=== PATIENT | male | born 1995 | race Caucasian/White ===

== ENCOUNTER → 2017-06-02 | Outpatient (CLI) | payer BC ==
[2017-06-02 18:51] LABS: BASO # 0.1 K/mm3 (0.0-0.2); BASO % 1.1 % (0.0-1.0); EOS # 0.1 K/mm3 (0.0-0.50); EOS % 1.4 % (0.0-3.0); LARGE UNSTAINED CELL # 0.3 K/mm3 (0.0-0.4); LARGE UNSTAINED CELL % 3.9 % (0.0-4.0); LYMPH # 2.4 K/mm3 (1.5-6.5); LYMPH % 32.8 % (24.0-44.0); MEAN CORPUSCULAR HEMOGLOBIN 33.4 pg (27.0-33.0); MEAN CORPUSCULAR HGB CONC 35.5 g/dl (32.0-36.5); MONO # 0.3 K/mm3 (0.0-0.8); MONO % 3.7 % (0.0-5.0); NEUTROPHILS # 4.2 K/mm3 (1.8-7.7); NEUTROPHILS % 57.1 % (36.0-66.0); PLATELET COUNT, AUTOMATED 350 k/mm3 (150-450); WHITE BLOOD COUNT 7.3 K/mm3 (4.0-10.0)
[2017-06-02 19:29] LABS: ALBUMIN 4.7 GM/DL (3.2-5.2); ALBUMIN/GLOBULIN RATIO 1.34 (1.00-1.93); ALKALINE PHOSPHATASE 83 U/L (45-117); ALT/SGPT 44 U/L (12-78); ANION GAP 10 MEQ/L (8-16); AST/SGOT 25 U/L (15-37); BILIRUBIN,TOTAL 0.4 MG/DL (0.2-1.0); BLOOD UREA NITROGEN 12 MG/DL (7-18); CALCIUM LEVEL 9.5 MG/DL (8.5-10.1); CARBON DIOXIDE LEVEL 27 MEQ/L (21-32); CHLORIDE LEVEL 104 MEQ/L (98-107); CHOLESTEROL LEVEL 239 MG/DL (<200); CREATININE FOR GFR 0.99 MG/DL (0.70-1.30); GLOMERULAR FILTRATION RATE > 60.0 (>60); GLUCOSE, FASTING 60 MG/DL (70-105); POTASSIUM SERUM 4.9 MEQ/L (3.5-5.1); SODIUM LEVEL 141 MEQ/L (136-145); TOTAL PROTEIN 8.2 GM/DL (6.4-8.2); TRIGLYCERIDES LEVEL 132 MG/DL (<150)
[2017-06-02 19:46] LABS: ERYTHROCYTE SEDIMENTATION RATE 2 mm/hr (0-15)
[2017-06-05 00:06] LABS: Lyme Disease IgG/IgM Antibodie <0.91 ISR (0.00-0.90); Lyme Disease IgM Ab Quantitati <0.80 index (0.00-0.79)
== END ==
LOC: M WUC 10:22
PROVIDERS: ATTEND Family Medicine
DX: Z00.01 Encounter for general adult medical examination with abnormal findings (principal); R03.0 Elevated blood-pressure reading, without diagnosis of hypertension; M25.561 Pain in right knee

== ENCOUNTER → 2017-07-01 | Outpatient (CLI) | payer BC | LOC: M OUTALCOH 07:54 | PROVIDERS: ATTEND Psychiatry & Neurology Psychiatry | DX: F10.10 Alcohol abuse, uncomplicated (principal) ==

== ENCOUNTER 2017-07-31 08:00 | Outpatient (RCR) | payer BC | END 2017-08-15 | LOC: M OUTALCOH 08:00 | PROVIDERS: ATTEND Psychiatry & Neurology Psychiatry | DX: F10.10 Alcohol abuse, uncomplicated (principal) ==

== ENCOUNTER → 2021-08-16 | Outpatient (CLI) | payer BC ==
[2021-08-16 10:40] LABS: BASO # 0.1 10^3/uL (0.0-0.2); BASO % 1.2 % (0.0-1.0); EOS # 0.1 10^3/uL (0.0-0.5); EOS % 1.9 % (0.0-3.0); HEMATOCRIT 51.2 % (42.0-52.0); HEMOGLOBIN 17.5 g/dl (13.5-17.5); LYMPH # 2.2 10^3/uL (1.5-5.0); LYMPH % 30.8 % (24.0-44.0); MEAN CORPUSCULAR HEMOGLOBIN 32.5 pg (27.0-33.0); MEAN CORPUSCULAR HGB CONC 34.2 g/dl (32.0-36.5); MEAN CORPUSCULAR VOLUME 95.2 fl (80.0-96.0); MONO # 0.7 10^3/uL (0.0-0.8); MONO % 9.6 % (2.0-8.0); NEUTROPHILS # 4.1 10^3/uL (1.5-8.5); NEUTROPHILS % 56.1 % (36.0-66.0); PLATELET COUNT, AUTOMATED 322 10^3/uL (150-450); RED BLOOD COUNT 5.38 10^6/uL (4.30-6.10); WHITE BLOOD COUNT 7.3 10^3/uL (4.0-10.0)
[2021-08-16 11:18] LABS: ALBUMIN 4.7 GM/DL (3.2-5.2); ALT/SGPT 175 U/L (12-78); BILIRUBIN,TOTAL 0.6 MG/DL (0.2-1.0); BLOOD UREA NITROGEN 11 MG/DL (7-18); CALCIUM LEVEL 9.2 MG/DL (8.5-10.1); CARBON DIOXIDE LEVEL 28 MEQ/L (21-32); CHLORIDE LEVEL 103 MEQ/L (98-107); CHOLESTEROL LEVEL 213 MG/DL (<200); CREATININE FOR GFR 0.81 MG/DL (0.70-1.30); GLOMERULAR FILTRATION RATE > 60.0 (>60); GLUCOSE, FASTING 90 MG/DL (70-100); HDL CHOLESTEROL 78 MG/DL (>40); LDL CHOLESTEROL 113 MG/DL (<100); NON-HDL-C 135 MG/DL; SODIUM LEVEL 140 MEQ/L (136-145); TOTAL PROTEIN 8.1 GM/DL (6.4-8.2); TRIGLYCERIDES LEVEL 111 MG/DL (<150)
== END ==
LOC: M WUC 08:13
PROVIDERS: ATTEND Family Medicine
DX: R03.0 Elevated blood-pressure reading, without diagnosis of hypertension (principal)

== ENCOUNTER → 2024-02-27 | Outpatient (REF) | payer OTHER ==
[2024-02-27 19:23] LABS: BASO # 0.1 10^3/uL (0.0-0.2); BASO % 1.1 % (0.0-1.0); EOS % 0.3 % (0.0-3.0); HEMATOCRIT 46.4 % (42.0-52.0); LYMPH # 1.5 10^3/uL (1.5-5.0); LYMPH % 16.5 % (24.0-44.0); MEAN CORPUSCULAR HEMOGLOBIN 33.7 pg (27.0-33.0); MEAN CORPUSCULAR HGB CONC 34.5 g/dl (32.0-36.5); MEAN CORPUSCULAR VOLUME 97.7 fl (80.0-96.0); MONO # 0.7 10^3/uL (0.0-0.8); MONO % 7.5 % (2.0-8.0); NEUTROPHILS # 6.8 10^3/uL (1.5-8.5); NEUTROPHILS % 74.2 % (36.0-66.0); PLATELET COUNT, AUTOMATED 309 10^3/uL (150-450); RED BLOOD COUNT 4.75 10^6/uL (4.30-6.10); WHITE BLOOD COUNT 9.2 10^3/uL (4.0-10.0)
[2024-02-27 19:25] LABS: ALBUMIN 4.6 G/DL (3.2-5.2); ALKALINE PHOSPHATASE 88 U/L (46-116); ALT/SGPT 155 U/L (7.0-40); AST/SGOT 112 U/L (<34); BILIRUBIN,TOTAL 0.9 MG/DL (0.3-1.2); BLOOD UREA NITROGEN 12 MG/DL (9-23); CALCIUM LEVEL 9.7 MG/DL (8.5-10.1); CARBON DIOXIDE LEVEL 29 MMOL/L (20-31); CHLORIDE LEVEL 98 MMOL/L (98-107); CHOLESTEROL LEVEL 206 MG/DL (<200); CHOLESTEROL RISK RATIO 2.79 (<5); CREATININE FOR GFR 0.72 MG/DL (0.70-1.30); GLOMERULAR FILTRATION RATE > 60.0 (>60); GLUCOSE, FASTING 59 MG/DL (60-100); HDL CHOLESTEROL 73.8 MG/DL (>40); LDL CHOLESTEROL 102.6 MG/DL (<100); NON-HDL-C 132.2 MG/DL; POTASSIUM SERUM 3.9 MMOL/L (3.5-5.1); SODIUM LEVEL 138 MMOL/L (136-145); TOTAL PROTEIN 7.7 G/DL (5.7-8.2); TRIGLYCERIDES LEVEL 148 MG/DL (<150)
== END ==
LOC: M LABWUC 16:34
PROVIDERS: ATTEND Family Medicine
DX: Z00.00 Encounter for general adult medical examination without abnormal findings (principal)

== ENCOUNTER → 2024-03-31 | Outpatient (REF) | payer OTHER ==
[2024-03-31 20:57] LABS: ALBUMIN 4.5 G/DL (3.2-5.2); BILIRUBIN,DIRECT 0.2 MG/DL (<0.4); BILIRUBIN,TOTAL 0.6 MG/DL (0.3-1.2); TOTAL PROTEIN 7.4 G/DL (5.7-8.2)
== END ==
LOC: M LAB REF 20:13
PROVIDERS: ATTEND Family Medicine
DX: R94.5 Abnormal results of liver function studies (principal)

== ENCOUNTER → 2024-07-28 | Outpatient (CLI) | payer OTHER | LOC: M SOG 07:51 | PROVIDERS: ATTEND Physician Assistant | DX: M25.532 Pain in left wrist (principal) ==

== ENCOUNTER → 2025-01-06 | Outpatient (REF) | payer OTHER | LOC: M LAB REF 16:44 | PROVIDERS: ATTEND Family Medicine | DX: R30.9 Painful micturition, unspecified (principal) ==

== ENCOUNTER → 2025-01-26 | Outpatient (CLI) | payer OTHER | LOC: M RAD 14:02 | PROVIDERS: ATTEND Family Medicine | DX: R30.9 Painful micturition, unspecified (principal) ==

== ENCOUNTER → 2025-02-02 | Outpatient (CLI) | payer OTHER, MEDICARE | LOC: M WUC 15:51 | PROVIDERS: ATTEND Nurse Practitioner Family | DX: N50.89 Other specified disorders of the male genital organs (principal) ==

== ENCOUNTER → 2025-03-23 | Outpatient (CLI) | payer OTHER ==
[~2025-03-23] MED LIST: OXYC1TAB23 PO
[2025-03-23 15:58] LABS: BASO # 0.1 10^3/uL (0.0-0.2); BASO % 1.6 % (0.0-1.0); EOS # 0.1 10^3/uL (0.0-0.5); EOS % 2.0 % (0.0-3.0); LYMPH # 1.4 10^3/uL (1.5-5.0); LYMPH % 32.1 % (24.0-44.0); MONO # 0.3 10^3/uL (0.0-0.8); MONO % 7.7 % (2.0-8.0); NEUTROPHILS # 2.5 10^3/uL (1.5-8.5); NEUTROPHILS % 56.4 % (36.0-66.0); PLATELET COUNT, AUTOMATED 180 10^3/uL (150-450)
[2025-03-23 16:05] LABS: ALT/SGPT 173 U/L (7.0-40); AST/SGOT 240 U/L (<34); CALCIUM LEVEL 9.4 MG/DL (8.5-10.1); CARBON DIOXIDE LEVEL 30 MMOL/L (20-31); CHLORIDE LEVEL 103 MMOL/L (98-107); CREATININE FOR GFR 0.69 MG/DL (0.70-1.30); GLOMERULAR FILTRATION RATE > 90.0 (>60); POTASSIUM SERUM 4.2 MMOL/L (3.5-5.1); SODIUM LEVEL 147 MMOL/L (136-145)
[2025-03-23 16:11] LABS: INR 0.88
== END ==
LOC: M WUC 09:14
PROVIDERS: ATTEND Nurse Practitioner Family
DX: R04.0 Epistaxis (principal)

== ENCOUNTER 2025-04-27 00:57 | Emergency (ER) | payer OTHER ==
[~2025-04-27] VITALS: Ht 167.6 cm; Wt 64.2 kg
[2025-04-27 01:13] VITALS: TEMP 97.8
[2025-04-27 01:52] LABS: BASO # 0.1 10^3/uL (0.0-0.2); BASO % 0.4 % (0.0-1.0); EOS # 0.0 10^3/uL (0.0-0.5); EOS % 0.1 % (0.0-3.0); LYMPH # 0.4 10^3/uL (1.5-5.0); LYMPH % 3.6 % (24.0-44.0); MONO # 0.8 10^3/uL (0.0-0.8); MONO % 7.1 % (2.0-8.0); NEUTROPHILS # 9.8 10^3/uL (1.5-8.5); NEUTROPHILS % 87.9 % (36.0-66.0); PLATELET COUNT, AUTOMATED 155 10^3/uL (150-450)
[2025-04-27 02:10] LABS: CALCIUM LEVEL 9.2 MG/DL (8.5-10.1); CARBON DIOXIDE LEVEL 24 MMOL/L (20-31); CHLORIDE LEVEL 98 MMOL/L (98-107); CREATININE FOR GFR 0.69 MG/DL (0.70-1.30); GLOMERULAR FILTRATION RATE > 90.0 (>60); POTASSIUM SERUM 3.9 MMOL/L (3.5-5.1); SODIUM LEVEL 138 MMOL/L (136-145)
[2025-04-27 02:44] LABS: CPK CREATINE PHOSPHOKINASE 469 U/L (46-171)
[2025-04-27] MEDS: NS (Normal Saline) 0.9% 1,000 ML IV ONE (02:44)
[2025-04-27] MEDS: amLODIPine 5 MG TAB PO ONE (02:47)
[2025-04-27 03:06] LABS: MAGNESIUM LEVEL 2.5 MG/DL (1.8-2.4)
[2025-04-27] MEDS: KETOROLAC 30 MG/ML 1 ML VIAL IV ONE (04:08)
[2025-04-27] MEDS: ACETAMINOPHEN *IV* 1,000 MG in IV 1 EA IV ONE (04:13)
[2025-04-27] MEDS: levETIRAcetam INJection 500 MG in DEXTROSE 5% (D5W) MINI-BAG PLU 100 ML IV ONE (04:20)
[2025-04-27] MEDS ORDERED: KEPP250T5 PO (04:21)
[2025-04-27] MEDS ORDERED: KEPP1TAB PO (04:21)
[2025-04-27 04:27] VITALS: O2SAT 95
[2025-04-27] MEDS ORDERED: OXAZ30CA2 PO (04:57)
[2025-04-27 05:00] VITALS: BP 155/97
[2025-04-27] MEDS: OXAZEPAM 15MG CAP PO ONE (05:17)
== END 2025-04-27 05:30 | disposition home or self-care (01) ==
LOC: M ED 00:57
DX: G40.89 Other seizures (principal); I10 Essential (primary) hypertension; Z79.899 Other long term (current) drug therapy
CPT/HCPCS: 70450; 71045; 72125; 80048; 82550; 83605; 83735; 84443; 85025; 93005; 96374; 96375; 99284; J0131; J1885; J1953

== ENCOUNTER 2025-07-15 14:32 | Inpatient (IN) | payer MEDICAID, OTHER ==
[~2025-07-15] VITALS: Ht 167.6 cm; Wt 66.5 kg
[~2025-07-15 14:32] MED LIST changes: +KEPP1TAB PO; +KEPP250T5 PO; +OXAZ30CA2 PO
[2025-07-15 15:02] LABS: BASO # 0.1 10^3/uL (0.0-0.2); BASO % 0.4 % (0.0-1.0); EOS # 0.0 10^3/uL (0.0-0.5); EOS % 0.1 % (0.0-3.0); LYMPH # 0.5 10^3/uL (1.5-5.0); LYMPH % 3.5 % (24.0-44.0); MONO # 0.9 10^3/uL (0.0-0.8); MONO % 7.1 % (2.0-8.0); NEUTROPHILS # 11.5 10^3/uL (1.5-8.5); NEUTROPHILS % 88.4 % (36.0-66.0); PLATELET COUNT, AUTOMATED 274 10^3/uL (150-450)
[2025-07-15 15:24] LABS: KETONE, URINE AUTO RFX 1+ mg/dL (NEGATIVE); LEUKOCYTE ESTERASE UR AUTO RFX NEGATIVE (NEGATIVE); MUCUS, URINE RFX SMALL (NEGATIVE); NITRITE, URINE AUTO RFX NEGATIVE (NEGATIVE); RBC, URINE AUTO RFX 0 /HPF (0-3); SQUAM EPITHELIAL CELL UR AURFX 0 /HPF (0-6)
[2025-07-15 15:38] LABS: WBC, URINE AUTO RFX 96 /HPF (0-3)
[2025-07-15 15:55] LABS: ALT/SGPT 213 U/L (7.0-40); AST/SGOT 201 U/L (<34); CALCIUM LEVEL 10.4 MG/DL (8.5-10.1); CARBON DIOXIDE LEVEL 26 MMOL/L (20-31); CHLORIDE LEVEL 96 MMOL/L (98-107); CREATININE FOR GFR 0.72 MG/DL (0.70-1.30); GLOMERULAR FILTRATION RATE > 90.0 (>60); POTASSIUM SERUM 4.1 MMOL/L (3.5-5.1); SODIUM LEVEL 136 MMOL/L (136-145)
[2025-07-15] MEDS ORDERED: ISOVUE-370 76% 100 ML VIAL As Ordered ONE (16:38)
[2025-07-15] MEDS: NS (Normal Saline) 0.9% 1,000 ML IV ONE (17:00)
[2025-07-15] MEDS: ONDANSETRON 4MG/2ML VIAL IV ONE (17:00)
[2025-07-15] MEDS: MORPHINE 4 MG/ML 1 ML VIAL IV PRN ×2 (17:11→20:39)
[2025-07-15] MEDS: THIAMINE 100 MG TAB PO SCH (18:43)
[2025-07-15] MEDS: FOLIC ACID 1 MG TAB PO SCH (18:43)
[2025-07-15] MEDS: MULTIVITAMINS/MINERALS THERAP 1 TAB PO SCH (18:43)
[2025-07-15] MEDS ORDERED: HOME MED LIST COMPLETE! XX SCH (18:45)
[2025-07-15] MEDS: NS (Normal Saline) 0.9% 1,000 ML IV SCH (18:46)
[2025-07-15] MEDS: HYDROMORPHONE HCL 0.5 MG/0.5 ML SYRINGE IV PRN (19:23)
[2025-07-15] MEDS: amLODIPine 5 MG TAB PO ONE (19:52)
[2025-07-15] MEDS: LABETALOL 100 MG/20 ML VIAL IV STA (22:31)
[2025-07-16] VITALS (13 sets, daily range): BP systolic 158–177; BP diastolic 105–118; TEMP 98.9–100.3; O2SAT 94–98
[2025-07-16 01:47] LABS: ESTIMATED AVERAGE GLUCOSE 103.0 MG/DL (60-110); ETHYL ALCOHOL (ETHANOL) < 0.003 % (0.000-0.010)
[2025-07-16 01:49] LABS: ACETONE/KETONE 1.59 MMOL/L (0.02-0.27)
[2025-07-16 07:41] LABS: PLATELET COUNT, AUTOMATED 198 10^3/uL (150-450)
[2025-07-16] MEDS: METOPROLOL TART 25 MG TABLET PO SCH (08:28)
[2025-07-16] MEDS: ENOXAPARIN 40 MG/0.4 ML SYRINGE (J1650 PER 10MG) SC SCH (08:28)
[2025-07-16 08:46] LABS: HEPATITIS C VIRUS ABY INDEX < 0.02 INDEX (<0.8)
[2025-07-16 08:52] LABS: ALT/SGPT 123 U/L (7.0-40); AST/SGOT 90 U/L (<34); CALCIUM LEVEL 9.0 MG/DL (8.5-10.1); CARBON DIOXIDE LEVEL 23 MMOL/L (20-31); CHLORIDE LEVEL 100 MMOL/L (98-107); CHOLESTEROL LEVEL 180 MG/DL (<200); CHOLESTEROL RISK RATIO 3.70 (<5); CREATININE FOR GFR 0.56 MG/DL (0.70-1.30); GLOMERULAR FILTRATION RATE > 90.0 (>60); LDL CHOLESTEROL 111.2 MG/DL (<100); MAGNESIUM LEVEL 1.7 MG/DL (1.8-2.4); NON-HDL-C 131.4 MG/DL; POTASSIUM SERUM 4.0 MMOL/L (3.5-5.1); SODIUM LEVEL 137 MMOL/L (136-145); TRIGLYCERIDES LEVEL 101 MG/DL (<150)
[2025-07-16] MEDS: LR 1,000 ML IV SCH (11:35)
[2025-07-17 01:15] VITALS: BP 179/111
[2025-07-17 01:20] VITALS: BP 179/111
[2025-07-17 03:25] VITALS: BP 175/116; TEMP 100.5; O2SAT 99
[2025-07-17 04:53] LABS: PLATELET COUNT, AUTOMATED 216 10^3/uL (150-450)
[2025-07-17 05:10] VITALS: BP 179/115
[2025-07-17] MEDS: amLODIPine 5 MG TAB PO ONE (05:10)
[2025-07-17 05:18] LABS: ALT/SGPT 91 U/L (7.0-40); AST/SGOT 71 U/L (<34); CALCIUM LEVEL 8.7 MG/DL (8.5-10.1); CARBON DIOXIDE LEVEL 24 MMOL/L (20-31); CHLORIDE LEVEL 101 MMOL/L (98-107); CREATININE FOR GFR 0.57 MG/DL (0.70-1.30); GLOMERULAR FILTRATION RATE > 90.0 (>60); MAGNESIUM LEVEL 1.6 MG/DL (1.8-2.4); POTASSIUM SERUM 3.9 MMOL/L (3.5-5.1); SODIUM LEVEL 139 MMOL/L (136-145)
[2025-07-17 07:15] VITALS: O2SAT 98
== END 2025-07-17 07:23 | disposition left against medical advice (07) | DRG 282 ==
LOC: M ED 14:32 → M ED INP 18:04 → M ICU 07-16 12:40
PROVIDERS: ADMIT Internal Medicine; ATTEND Internal Medicine
PROC: B246ZZZ Ultrasonography of Right and Left Heart (ICD-10-PCS; principal; 2025-07-16)
DX: K85.20 Alcohol induced acute pancreatitis without necrosis or infection (principal); F10.10 Alcohol abuse, uncomplicated; I16.0 Hypertensive urgency

== ENCOUNTER 2025-07-20 09:01 | Inpatient (IN) | payer MEDICAID ==
[~2025-07-20] VITALS: Ht 167.6 cm; Wt 61.5 kg
[2025-07-20 09:39] LABS: BASO # 0.1 10^3/uL (0.0-0.2); BASO % 0.6 % (0.0-1.0); EOS # 0.1 10^3/uL (0.0-0.5); EOS % 0.3 % (0.0-3.0); LYMPH # 0.9 10^3/uL (1.5-5.0); LYMPH % 6.0 % (24.0-44.0); MONO # 2.0 10^3/uL (0.0-0.8); MONO % 13.4 % (2.0-8.0); NEUTROPHILS # 12.0 10^3/uL (1.5-8.5); NEUTROPHILS % 78.4 % (36.0-66.0); PLATELET COUNT, AUTOMATED 373 10^3/uL (150-450)
[2025-07-20 10:00] LABS: ETHYL ALCOHOL (ETHANOL) < 0.003 % (0.000-0.010)
[2025-07-20 10:13] LABS: ALT/SGPT 53 U/L (7.0-40); AST/SGOT 34 U/L (<34); CALCIUM LEVEL 9.5 MG/DL (8.5-10.1); CARBON DIOXIDE LEVEL 28 MMOL/L (20-31); CHLORIDE LEVEL 101 MMOL/L (98-107); CREATININE FOR GFR 0.50 MG/DL (0.70-1.30); GLOMERULAR FILTRATION RATE > 90.0 (>60); MAGNESIUM LEVEL 2.0 MG/DL (1.8-2.4); POTASSIUM SERUM 3.7 MMOL/L (3.5-5.1); SODIUM LEVEL 141 MMOL/L (136-145)
[2025-07-20] MEDS: NS (Normal Saline) 0.9% 1,000 ML IV ONE ×2 (10:16→12:19)
[2025-07-20] MEDS ORDERED: HOME MED LIST COMPLETE! XX SCH (11:15)
[2025-07-20] MEDS: GASTROGRAFIN SOLUTION 30ML PO SCH (11:45)
[2025-07-20] MEDS: GASTROGRAFIN SOLUTION 30ML PO ONE (12:02)
[2025-07-20] MEDS ORDERED: ISOVUE-370 76% 100 ML VIAL As Ordered ONE (12:49)
[2025-07-20] MEDS: METOPROLOL TART 50 MG TAB PO ONE (13:30)
[2025-07-20] MEDS ORDERED: hydrALAZINE 20 MG/ML 1 ML VIAL IV PRN (15:55)
[2025-07-20] MEDS: **hydrALAZINE** 10 MG TAB PO SCH (16:17)
[2025-07-20 18:12] VITALS: BP 176/102; TEMP 97.8; O2SAT 96
[2025-07-20] MEDS ORDERED: NICOTINE POLACRILEX 2 MG GUM PO PRN (18:25)
[2025-07-20 19:26] VITALS: BP 171/110; TEMP 97.7; O2SAT 96
[2025-07-20 20:00] VITALS: BP 171/110
[2025-07-20] MEDS: ACETAMINOPHEN 325 MG TAB PO PRN (20:13)
[2025-07-20] MEDS: THIAMINE 100 MG TAB PO SCH (20:14)
[2025-07-20 20:30] LABS: APPEARANCE, URINE CLEAR (CLEAR); BACTERIA, URINE AUTO NEGATIVE (NEGATIVE); BILIRUBIN, URINE AUTO NEGATIVE (NEGATIVE); BLOOD, URINE BLOOD NEGATIVE (NEGATIVE); GLUCOSE, URINE (UA) AUTO NEGATIVE (NEGATIVE); KETONE, URINE AUTO TRACE mg/dL (NEGATIVE); LEUKOCYTE ESTERASE, URINE AUTO NEGATIVE (NEGATIVE); NITRITE, URINE AUTO NEGATIVE (NEGATIVE); PROTEIN, URINE AUTO NEGATIVE (NEGATIVE); RBC, URINE AUTO 0 /HPF (0-3); SPECIFIC GRAVITY URINE AUTO 1.009 (1.002-1.035); SQUAMOUS EPITHELIAL CELL UR AU 0 /HPF (0-6); UROBILINOGEN, URINE AUTO 0.2 mg/dL (0.0-2.0); WBC, URINE AUTO 0 /HPF (0-3)
[2025-07-20] MEDS: NICOTINE POLACRILEX 2 MG GUM PO PRN (21:18)
[2025-07-21] VITALS (24 sets, daily range): BP systolic 140–210; BP diastolic 64–120; TEMP 97.4–99.6; O2SAT 95–98
[2025-07-21 05:25] LABS: BASO # 0.1 10^3/uL (0.0-0.2); BASO % 0.6 % (0.0-1.0); EOS # 0.1 10^3/uL (0.0-0.5); EOS % 0.8 % (0.0-3.0); LYMPH # 0.8 10^3/uL (1.5-5.0); LYMPH % 6.6 % (24.0-44.0); MONO # 1.6 10^3/uL (0.0-0.8); MONO % 12.4 % (2.0-8.0); NEUTROPHILS # 10.0 10^3/uL (1.5-8.5); NEUTROPHILS % 78.6 % (36.0-66.0); PLATELET COUNT, AUTOMATED 378 10^3/uL (150-450)
[2025-07-21 06:17] LABS: HIV 1&2 SCREEN NEGATIVE (NEGATIVE)
[2025-07-21 06:33] LABS: ALT/SGPT 42 U/L (7.0-40); AST/SGOT 26 U/L (<34); CALCIUM LEVEL 9.0 MG/DL (8.5-10.1); CARBON DIOXIDE LEVEL 24 MMOL/L (20-31); CHLORIDE LEVEL 101 MMOL/L (98-107); CREATININE FOR GFR 0.51 MG/DL (0.70-1.30); GLOMERULAR FILTRATION RATE > 90.0 (>60); MAGNESIUM LEVEL 1.9 MG/DL (1.8-2.4); POTASSIUM SERUM 3.6 MMOL/L (3.5-5.1); SODIUM LEVEL 141 MMOL/L (136-145)
[2025-07-21] MEDS: NS (Normal Saline) 0.9% 1,000 ML IV SCH (08:08)
[2025-07-21] MEDS: FOLIC ACID 1 MG TAB PO SCH (08:10)
[2025-07-21] MEDS: MULTIVITAMINS/MINERALS THERAP 1 TAB PO SCH (08:10)
[2025-07-21] MEDS: **hydrALAZINE** 50 MG TAB PO SCH (08:11)
[2025-07-21] MEDS: PANTOPRAZOLE 40MG TAB PO SCH (12:34)
[2025-07-21] MEDS: **hydrALAZINE HCL** 25 MG TAB PO SCH (15:26)
[2025-07-21] MEDS: LIDOCAINE 5% PATCH TD ONE (18:13)
[2025-07-22] VITALS (7 sets, daily range): BP systolic 148–162; BP diastolic 74–92; TEMP 98.1–98.9; O2SAT 96–97
[2025-07-22 06:03] LABS: BASO # 0.1 10^3/uL (0.0-0.2); BASO % 1.0 % (0.0-1.0); EOS # 0.1 10^3/uL (0.0-0.5); EOS % 0.8 % (0.0-3.0); LYMPH # 1.2 10^3/uL (1.5-5.0); LYMPH % 10.3 % (24.0-44.0); MONO # 1.4 10^3/uL (0.0-0.8); MONO % 12.3 % (2.0-8.0); NEUTROPHILS # 8.6 10^3/uL (1.5-8.5); NEUTROPHILS % 73.7 % (36.0-66.0); PLATELET COUNT, AUTOMATED 539 10^3/uL (150-450)
[2025-07-22 06:43] LABS: ALT/SGPT 36 U/L (7.0-40); AST/SGOT 23 U/L (<34); CALCIUM LEVEL 9.4 MG/DL (8.5-10.1); CARBON DIOXIDE LEVEL 28 MMOL/L (20-31); CHLORIDE LEVEL 100 MMOL/L (98-107); CREATININE FOR GFR 0.55 MG/DL (0.70-1.30); GLOMERULAR FILTRATION RATE > 90.0 (>60); MAGNESIUM LEVEL 2.0 MG/DL (1.8-2.4); POTASSIUM SERUM 3.5 MMOL/L (3.5-5.1); SODIUM LEVEL 141 MMOL/L (136-145)
[2025-07-22] MEDS: ENOXAPARIN 40 MG/0.4 ML SYRINGE (J1650 PER 10MG) SC SCH (09:00)
[2025-07-22] MEDS ORDERED: HYDR25TA87 PO (10:32)
[2025-07-22] MEDS ORDERED: CLONI1TA PO (10:32)
[2025-07-22] MEDS ORDERED: LISI20TA33 PO (10:32)
== END 2025-07-22 11:20 | disposition home or self-care (01) | DRG 282 ==
LOC: M ED 09:01 → M ED INP 15:52 → M PCU 18:07 → M MSPAV 07-21 22:41
PROVIDERS: ADMIT Student in an Organized Health Care Education/Training Program; ATTEND Student in an Organized Health Care Education/Training Program
DX: K85.20 Alcohol induced acute pancreatitis without necrosis or infection (principal); I10 Essential (primary) hypertension; F10.239 Alcohol dependence with withdrawal, unspecified; F17.223 Nicotine dependence, chewing tobacco, with withdrawal; I16.0 Hypertensive urgency; M54.50 Low back pain, unspecified; K13.21 Leukoplakia of oral mucosa, including tongue; D53.9 Nutritional anemia, unspecified; Z79.899 Other long term (current) drug therapy; Z85.47 Personal history of malignant neoplasm of testis; Z91.198 Patient's noncompliance with other medical treatment and regimen for other reason; Z56.0 Unemployment, unspecified

== ENCOUNTER → 2025-08-19 | Outpatient (CLI) | payer MEDICAID, OTHER ==
[~2025-08-19] MED LIST changes: +CLONI1TA PO; +HYDR25TA87 PO; +LISI20TA33 PO
[2025-08-19 17:25] LABS: LDH LACTATE DEHYDROGENASE 253.0 U/L (120-246)
== END ==
LOC: M WUC 14:26
PROVIDERS: ATTEND Urology
DX: C62.92 Malignant neoplasm of left testis, unspecified whether descended or undescended (principal)

== ENCOUNTER → 2025-08-27 | Outpatient (CLI) | payer OTHER ==
[~2025-08-27] MED LIST changes: +ISOVUE-370 76% 100 ML VIAL As Ordered ONE
== END ==
LOC: M RAD 16:51
PROVIDERS: ATTEND Urology
DX: C62.92 Malignant neoplasm of left testis, unspecified whether descended or undescended (principal)
CPT/HCPCS: 74177; Q9967